=== PATIENT | male | born 1950 | race Caucasian/White ===

== ENCOUNTER 2018-03-07 10:15 | Emergency (ER) | payer BC ==
[~2018-03-07] VITALS: Ht 175.3 cm; Wt 65.0 kg
[2018-03-07 10:21] VITALS: TEMP 38.9; Ht 175.3 cm; Wt 65.0 kg
[2018-03-07] MEDS ORDERED: MoRPHine SULFATE 4 MG/ML 1 ML CARP\\VIAL IV STA (10:38)
[2018-03-07] MEDS ORDERED: MoRPHine SULFATE 4 MG/ML 1 ML CARP\\VIAL IV PRN (10:45)
[2018-03-07 11:13] LABS: BASO % 0.2 %; BASO ABS # 0.03 K/uL (0-0.2); HEMOGLOBIN 15.5 g/dL (14.0-18.0); IG# 0.06 K/uL (0.00-0.02); LYMPH % 10.7 %; LYMPH ABS # 1.59 K/uL (1.2-3.4); MEAN CELL VOLUME 91.8 fL (80-100); MEAN CORPUSCULAR HEMOGLOBIN 30.9 pg (25-34); MEAN CORPUSCULAR HGB CONC 33.7 g/dl (32-36); MEAN PLATELET VOLUME 10.4 fL (7.4-10.4); MONO % 6.5 %; MONO ABS # 0.97 K/uL (0.11-0.59); NEUT % 82.2 %; NEUT ABS # 12.27 K/uL (1.4-6.5); PLATELET COUNT 206 K/uL (130-400); RED CELL DISTRIBUTION WIDTH CV 14.1 % (11.5-14.5); RED CELL DISTRIBUTION WIDTH SD 47.9 fL (36.4-46.3); WHITE BLOOD COUNT 14.92 K/uL (4.8-10.8)
--- NOTE | 2018-03-07 11:18 | EMERGENCY ROOM VISIT NOTE ---
History Report prepared by Maureen: Adonay Gama Under the Supervision of: Dr. Isidro Parra M.D. First contact with patient: 10:28 Chief Complaint: TESTICULAR PAIN Stated Complaint: ENLARGED TESTICLE History of Present Illness The patient is a 67 year old male who presents to the Emergency Room with complaints of testicular enlargement and worsening pain beginning 2 days ago. The patient reports that he noticed enlargement on that day, and states that it felt sensitive throughout the day. He states that last night, his pain shashank "through the roof." He notes that he took 2 hydrocodone at 01:00 and one at 07: 00, which he states greatly improved his symptoms. He rates his current pain at a 7/10 in severity. He notes that yesterday and today his urinary stream has been diminished, and notes a history of prostate "issues." The patient denies nausea, vomiting, or fever. He reports that last week, he experienced a short episode of flank pain as well as testicular pain that resolved quickly. He notes that he often rides his bicycle, but states he was not riding it 2 days ago. He denies any surgeries on the testicles. He reports that he has a cardiac stent. Source of History: patient Onset: 2 days ago Position: other (testicles) Symptom Intensity: 7/10 Quality: other (testicular enlargement and pain) Modifying Factors (Relieving): other (hydrocodone) Associated Symptoms: + urinary symptoms (diminished urinary stream), No fevers, No nausea, No vomiting Note: flank pain Review of Systems See HPI for pertinent positives & negatives. A total of 10 systems reviewed and were otherwise negative. Past Medical & Surgical Surgical Problems: (1) History of heart artery stent Family History Cancer Hypertension Social History Smoking Status: Never Smoker Current/Historical Medications Scheduled Aspirin (Aspirin Ec), 81 MG PO DAILY Atorvastatin (Lipitor), 80 MG PO DAILY Cefdinir (Omnicef), 300 MG PO Q12H Ticagrelor (Brilinta), 90 MG PO BID Miscellaneous Medications None (Patient States No Home Meds) Allergies Coded Allergies: No Known Allergies (Unverified , 03/07/18) Physical Exam Vital Signs Date Time Temp Pulse Resp B/P (MAP) Pulse Ox O2 Delivery O2 Flow Rate FiO2 03/07/18 13:05 70 20 131/60 98 03/07/18 11:39 68 18 141/86 99 Room Air 03/07/18 10:21 38.9 92 20 131/65 99 Room Air Physical Exam GENERAL: Patient is in no acute distress. HEENT: No acute trauma, normocephalic atraumatic, mucous membranes moist, no nasal congestion, no scleral icterus. NECK: No stridor, no adenopathy, no meningismus, trachea is midline. LUNGS: Clear to auscultation bilaterally, no wheeze, no rhonchi, breath sounds equal. HEART: Without murmurs gallops or rubs, regular rate and rhythm. ABDOMEN: Soft, nontender, bowel sounds positive, no hernias, no peritonitis. EXTREMITIES: No cyanosis or edema, full range of motion of all the joints without pain or difficulty, no signs for acute trauma. NEUROLOGIC: Oriented x 3, no acute motor or sensory deficits, no focal weakness. SKIN: No rash, no jaundice, no diaphoresis. GROIN: Very enlarged left hemiscrotum with some warmth and erythema. Left testicle appears enlarged and is quite tender. No obvious hernia. Right hemiscrotum exam is unremarkable. Medical Decision & Procedures ER Provider Diagnostic Interpretation: Radiology results as stated below per my review and radiologist interpretation: (PERLA/BLAD)RETROPERITON COMP HISTORY: 67 years-old Male left flank pain acute left-sided flank pain COMPARISON: CT 02/09/2012 TECHNIQUE: Multiple real-time sonographic images of the kidneys and bladder were obtained assessing grayscale appearance and color flow FINDINGS: Right kidney measures 10.4 cm in length and is unremarkable without renal calculi, hydronephrosis or suspicious mass lesion. Left kidney measures 11.2 cm in length and is also unremarkable without renal calculi, hydronephrosis or suspicious mass lesion. Large diverticulum of the posterior lateral urinary bladder redemonstrated measuring up to approximately 4.7 x 2.9 cm. Bilateral ureteral jets not visualized. The prostate appears enlarged. IMPRESSION: 1. Unremarkable sonographic appearance of the kidneys without renal calculi or hydronephrosis. 2. Prostamegaly with large bladder diverticulum redemonstrated, likely secondary to chronic bladder outlet obstruction. The above report was generated using voice recognition software. It may contain grammatical, syntax or spelling errors. Electronically signed by: Chris Luna M.D. 03/07/2018 12:37 PM Dictated Date/Time: 03/07/2018 12:34 PM (TESTICULAR) SCROTUM-CONT CLINICAL HISTORY: 67 years-old Male with left test swollen, pain. Acute left-sided scrotal pain and swelling COMPARISON STUDY: CT abdomen and pelvis 02/09/2012 TECHNIQUE: Real-time, grayscale, and color Doppler sonography of the testes and scrotum is performed. Images are reviewed in the transverse and longitudinal planes. FINDINGS: RIGHT HEMISCROTUM: The right testis measures 4.7 x 2.2 x 1.8 cm and the parenchyma appears unremarkable. No intratesticular mass is seen. Normal-appearing arterial inflow is present within the right testicle. 0.5 cm right epididymal head cyst. Small varicocele. No hydrocele. LEFT HEMISCROTUM: The left testis measures 4.3 x 3.1 x 2.8 cm and the parenchyma appears mildly hypervascular. No intratesticular mass is seen. Normal-appearing arterial inflow is present within the left testicle. Left epididymis appears enlarged, heterogeneous and hypervascular. Moderate sized complex septated hydrocele. Small varicocele. IMPRESSION: 1. Enlarged heterogeneous and hypervascular left epididymis compatible with acute epididymitis. Additionally, there is mildly increased vascularity about the left testicle suspicious for developing acute orchitis. 2. Moderate sized complex septated left-sided hydrocele, possibly reflects associated pyocele. 3. Small bilateral varicoceles. The above report was generated using voice recognition software. It may contain grammatical, syntax or spelling errors. Electronically signed by: Chris Luna M.D. 03/07/2018 12:41 PM Dictated Date/Time: 03/07/2018 12:37 PM Laboratory Results 03/07/18 11:00 Red Blood Count 5.01, Mean Corpuscular Volume 91.8, Mean Corpuscular Hemoglobin 30.9, Mean Corpuscular Hemoglobin Concent 33.7, Mean Platelet Volume 10.4, Neutrophils (%) (Auto) 82.2, Lymphocytes (%) (Auto) 10.7, Monocytes (%) (Auto) 6.5, Eosinophils (%) (Auto) 0.0, Basophils (%) (Auto) 0.2, Neutrophils # (Auto) 12.27, Lymphocytes # (Auto) 1.59, Monocytes # (Auto) 0.97, Eosinophils # (Auto) 0.00, Basophils # (Auto) 0.03 03/07/18 11:00 Test 03/07/18 11:00 03/07/18 11:25 White Blood Count 14.92 K/uL (4.8-10.8) Red Blood Count 5.01 M/uL (4.7-6.1) Hemoglobin 15.5 g/dL (14.0-18.0) Hematocrit 46.0 % (42-52) Mean Corpuscular Volume 91.8 fL (80-100) Mean Corpuscular Hemoglobin 30.9 pg (25-34) Mean Corpuscular Hemoglobin Concent 33.7 g/dl (32-36) Platelet Count 206 K/uL (130-400) Mean Platelet Volume 10.4 fL (7.4-10.4) Neutrophils (%) (Auto) 82.2 % Lymphocytes (%) (Auto) 10.7 % Monocytes (%) (Auto) 6.5 % Eosinophils (%) (Auto) 0.0 % Basophils (%) (Auto) 0.2 % Neutrophils # (Auto) 12.27 K/uL (1.4-6.5) Lymphocytes # (Auto) 1.59 K/uL (1.2-3.4) Monocytes # (Auto) 0.97 K/uL (0.11-0.59) Eosinophils # (Auto) 0.00 K/uL (0-0.5) Basophils # (Auto) 0.03 K/uL (0-0.2) RDW Standard Deviation 47.9 fL (36.4-46.3) RDW Coefficient of Variation 14.1 % (11.5-14.5) Immature Granulocyte % (Auto) 0.4 % Immature Granulocyte # (Auto) 0.06 K/uL (0.00-0.02) Anion Gap 6.0 mmol/L (3-11) Est Creatinine Clear Calc Drug Dose 59.9 ml/min Estimated GFR () 81.7 Estimated GFR (Non- 70.5 BUN/Creatinine Ratio 13.1 (10-20) Calcium Level 9.8 mg/dl (8.5-10.1) Urine Color YELLOW Urine Appearance CLOUDY (CLEAR) Urine pH 5.5 (4.5-7.5) Urine Specific [place] 1.022 (1.000-1.030) Urine Protein TRACE (NEG) Urine Glucose (UA) TRACE (NEG) Urine Ketones 1+ (NEG) Urine Occult Blood 2+ (NEG) Urine Nitrite POS (NEG) Urine Bilirubin NEG (NEG) Urine Urobilinogen NEG (NEG) Urine Leukocyte Esterase LARGE (NEG) Urine WBC (Auto) >30 /hpf (0-5) Urine RBC (Auto) 0-4 /hpf (0-4) Urine Hyaline Casts (Auto) 1-5 /lpf (0-5) Urine Epithelial Cells (Auto) 5-10 /lpf (0-5) Urine Bacteria (Auto) 4+ (NEG) Laboratory results reviewed by me. Medications Administered Medications (Trade) Dose Ordered Sig/Efrain Route Start Time Stop Time Status Last Admin Dose Admin Morphine Sulfate (MoRPHine SULFATE INJ) 4 mg NOW STAT IV 03/07/18 10:38 03/07/18 10:42 DC 03/07/18 10:59 4 MG Ceftriaxone Sodium (Rocephin Inj) 1 gm NOW STAT IV 03/07/18 12:07 03/07/18 12:09 DC 03/07/18 12:49 1 GM ED Course 1030: The patient was evaluated in room B11A. A complete history and physical exam was performed. 1038: Ordered Morphine Sulfate 4 mg IV 1202: I updated the patient on current results. 1203: I consulted Dr. De Leon - Urology. He recommends treatment with antibiotics for 2 weeks and a follow up visit in the office. 1207: Ordered Rocephin 1 gm IV 1248: Reevaluated the patient. Discussed results and discharge instructions: he verbalized understanding and agreement. The patient is ready for discharge. Medical Decision Differential diagnosis: epididymitis or orchitis, hernia, mass, hydrocele, urinary tract infection, hydronephrosis, testicular torsion There is a mild leukocytosis, this could be consistent with infection. No concerning anemia. No significant electrolyte abnormality or kidney failure. Urinalysis does suggest infection. Urine culture is pending. Testicular ultrasound shows an enlarged left epididymis, the left testicle is slightly inflamed. There was a hydrocele. No evidence for testicular torsion. Renal ultrasound showed no evidence for hydronephrosis. The patient appears to have an epididymitis/orchitis. He has a UTI as well. He did receive IV morphine for pain, IV ceftriaxone as antibiotic coverage. I spoke with urology. The patient is being discharged on Omnicef for 2 weeks. He will follow with the urology office in a few days, if worsening, he will return. Blood Pressure Screening Patient's blood pressure: Elevated blood pressure Blood pressure disposition: Elevated BP felt to be situational Consults Time Called: 1200 Consulting Physician: Dr. De Leon - Urology Returned Call: [address] De Leon - Urology. He recommends treatment with antibiotics for 2 weeks and a follow up visit in the office. Impression Primary Impression: Epididymitis Additional Impressions: Orchitis UTI (urinary tract infection) Scribe Attestation The scribe's documentation has been prepared under my direction and personally reviewed by me in its entirety. I confirm that the note above accurately reflects all work, treatment, procedures, and medical decision making performed by me. Departure Information Dispostion Home / Self-Care Prescriptions Cefdinir (OMNICEF) 300 Mg Cap 300 MG PO Q12H for 14 Days, #28 CAP Prov: Isidro Parra M.D. 03/07/18 Forms HOME CARE DOCUMENTATION FORM, IMPORTANT VISIT INFORMATION, WORK / SCHOOL INSTRUCTIONS Patient Instructions My [facility] Additional Instructions ice and scrotal elevation use ibuprofen for pain and swelling omnicef 2x per day for 2 weeks may use vicodin as needed for severe pain see urology--call for an appt return for fever, vomiting or if not improving as we discussed Problem Qualifiers
[2018-03-07 11:29] LABS: CALCIUM 9.8 mg/dl (8.5-10.1); CREATININE 1.07 mg/dl (0.60-1.40)
[2018-03-07] MEDS ORDERED: ATOR80TA PO (11:38)
[2018-03-07] MEDS ORDERED: ASPI81TA28 PO (11:38)
[2018-03-07] MEDS ORDERED: TICA1TAB PO (11:38)
[2018-03-07] MEDS ORDERED: CEFTRIAXONE SOD INJ 1 GM ADDVIAL IV STA (12:07)
--- NOTE | 2018-03-07 12:38 | DIAGNOSTIC IMAGING REPORT ---
(PERLA/BLAD)RETROPERITON COMP HISTORY: 67 years-old Male left flank pain acute left-sided flank pain COMPARISON: CT 02/09/2012 TECHNIQUE: Multiple real-time sonographic images of the kidneys and bladder were obtained assessing grayscale appearance and color flow FINDINGS: Right kidney measures 10.4 cm in length and is unremarkable without renal calculi, hydronephrosis or suspicious mass lesion. Left kidney measures 11.2 cm in length and is also unremarkable without renal calculi, hydronephrosis or suspicious mass lesion. Large diverticulum of the posterior lateral urinary bladder redemonstrated measuring up to approximately 4.7 x 2.9 cm. Bilateral ureteral jets not visualized. The prostate appears enlarged. IMPRESSION: 1. Unremarkable sonographic appearance of the kidneys without renal calculi or hydronephrosis. 2. Prostamegaly with large bladder diverticulum redemonstrated, likely secondary to chronic bladder outlet obstruction. The above report was generated using voice recognition software. It may contain grammatical, syntax or spelling errors. Electronically signed by: Chris Luna M.D. 03/07/2018 12:37 PM Dictated Date/Time: 03/07/2018 12:34 PM
--- NOTE | 2018-03-07 12:43 | DIAGNOSTIC IMAGING REPORT ---
(TESTICULAR) SCROTUM-CONT CLINICAL HISTORY: 67 years-old Male with left test swollen, pain. Acute left-sided scrotal pain and swelling COMPARISON STUDY: CT abdomen and pelvis 02/09/2012 TECHNIQUE: Real-time, grayscale, and color Doppler sonography of the testes and scrotum is performed. Images are reviewed in the transverse and longitudinal planes. FINDINGS: RIGHT HEMISCROTUM: The right testis measures 4.7 x 2.2 x 1.8 cm and the parenchyma appears unremarkable. No intratesticular mass is seen. Normal-appearing arterial inflow is present within the right testicle. 0.5 cm right epididymal head cyst. Small varicocele. No hydrocele. LEFT HEMISCROTUM: The left testis measures 4.3 x 3.1 x 2.8 cm and the parenchyma appears mildly hypervascular. No intratesticular mass is seen. Normal-appearing arterial inflow is present within the left testicle. Left epididymis appears enlarged, heterogeneous and hypervascular. Moderate sized complex septated hydrocele. Small varicocele. IMPRESSION: 1. Enlarged heterogeneous and hypervascular left epididymis compatible with acute epididymitis. Additionally, there is mildly increased vascularity about the left testicle suspicious for developing acute orchitis. 2. Moderate sized complex septated left-sided hydrocele, possibly reflects associated pyocele. 3. Small bilateral varicoceles. The above report was generated using voice recognition software. It may contain grammatical, syntax or spelling errors. Electronically signed by: Chris Luna M.D. 03/07/2018 12:41 PM Dictated Date/Time: 03/07/2018 12:37 PM
[2018-03-07] MEDS ORDERED: CEFD300C2 PO (12:54)
[2018-03-07 13:05] VITALS: BP 131/60; PULSE 70; O2SAT 98
--- NOTE | 2018-03-09 12:33 | Pharmacy Progress Note ---
ED Pharmacist Culture FollowUp Date of Service: Mar 09, 2018. Patient was sent home with a prescription for Cefdinir 300mg PO BID x 14 days, which should cover the e coli growing from the patient's URINE culture.
== END 2018-03-07 13:06 | disposition home or self-care (01) ==
LOC: C.EDB 10:16
DX: N50.812 Left testicular pain (principal); N45.1 Epididymitis; N45.2 Orchitis; N39.0 Urinary tract infection, site not specified; Z79.82 Long term (current) use of aspirin; Z79.899 Other long term (current) drug therapy; Z82.49 Family history of ischemic heart disease and other diseases of the circulatory system; Z80.9 Family history of malignant neoplasm, unspecified

== ENCOUNTER 2018-03-09 12:35 | Inpatient (IN) | payer BC, OTHER ==
[~2018-03-09] VITALS: Ht 175.3 cm; Wt 61.8 kg
[~2018-03-09 12:35] MED LIST: ASPI81TA28 PO; ATOR80TA PO; CEFD300C2 PO; TICA1TAB PO
[2018-03-09 13:53] LABS: BASO % 0.2 %; BASO ABS # 0.02 K/uL (0-0.2); EOS % 0.5 %; EOS ABS # 0.06 K/uL (0-0.5); HEMATOCRIT 42.4 % (42-52); HEMOGLOBIN 14.2 g/dL (14.0-18.0); IG# 0.07 K/uL (0.00-0.02); LYMPH % 9.9 %; LYMPH ABS # 1.32 K/uL (1.2-3.4); MEAN CELL VOLUME 90.4 fL (80-100); MEAN CORPUSCULAR HEMOGLOBIN 30.3 pg (25-34); MEAN CORPUSCULAR HGB CONC 33.5 g/dl (32-36); MEAN PLATELET VOLUME 10.9 fL (7.4-10.4); MONO % 9.8 %; MONO ABS # 1.31 K/uL (0.11-0.59); NEUT % 79.1 %; NEUT ABS # 10.52 K/uL (1.4-6.5); PLATELET COUNT 250 K/uL (130-400); RED CELL DISTRIBUTION WIDTH CV 14.3 % (11.5-14.5); RED CELL DISTRIBUTION WIDTH SD 47.2 fL (36.4-46.3)
[2018-03-09 14:15] LABS: CALCIUM 9.5 mg/dl (8.5-10.1); CREATININE 0.97 mg/dl (0.60-1.40); POTASSIUM 3.7 mmol/L (3.5-5.1)
--- NOTE | 2018-03-09 14:36 | DIAGNOSTIC IMAGING REPORT ---
ULTRASOUND TESTES AND SCROTUM CLINICAL HISTORY: Left testicular pain and swelling. COMPARISON STUDY: Scrotal ultrasound dated 03/07/2018. TECHNIQUE: Real-time, grayscale, and color Doppler sonography of the testes and scrotum is performed. Images are reviewed in the transverse and longitudinal planes. FINDINGS: The testes are normal in size. The right testis is homogeneous in echotexture. The left testis appears slightly edematous and hyperemic on color imaging. The right testis measures 4.4 x 2.1 x 1.9 cm and the left testis measures 4.8 x 2.7 x 3.3 cm. No intratesticular mass is seen. Normal Doppler waveforms are identified in both testes. The right epididymal head is normal in appearance. The right epididymal head measures 1.0 cm in length, and a 5 mm epididymal head cyst is incidentally noted. The left epididymis is enlarged and heterogeneous, and appears hyperemic on color imaging. There are small bilateral varicoceles, measuring up to 4 mm the left and 3 mm on the right. There is complex fluid identified within the left scrotum, likely representing pyocele. IMPRESSION: 1. Findings of left epididymoorchitis have progressed from the 03/07/2018 examination. 2. There is complex fluid identified around the left testis which likely represents pyocele. Urological assessment is recommended. 3. The right testis is normal in appearance. Electronically signed by: Isidro Felipe M.D. 03/09/2018 2:35 PM Dictated Date/Time: 03/09/2018 2:30 PM
[2018-03-09] MEDS ORDERED: CEFTRIAXONE SOD INJ 1 GM ADDVIAL IV STA (14:50)
--- NOTE | 2018-03-09 15:34 | EMERGENCY ROOM VISIT NOTE ---
History Report prepared by Maureen: Sylvia Mayorga Under the Supervision of: Dr. Tommy Abdullahi M.D. First contact with patient: 13:01 Chief Complaint: URINARY SYMPTOMS Stated Complaint: UTI History of Present Illness The patient is a 67 year old male who presents to the Emergency Room with complaints of worsening urinary symptoms starting a few days ago. The patient states that he was here 2 days ago for a swollen left testicle. He states that they found a UTI, epididymidis, and possibly a slight hydrocele. He states that he called his urologist because the testicle now became firm. He states that he told him to come to the ED. He notes that he was not seen by his urologist since he is from [place]. The patient denies abdominal pain, nausea, vomiting, hematuria, penile discharge, fever, chest pain, and difficulty breathing. He notes that he takes Brilinta. Source of History: patient Onset: a few days ago Position: abdomen Quality: other (urinary symptoms) Timing: worsening Associated Symptoms: No fevers, No chest pain, No nausea, No vomiting, No abdominal pain, No urinary symptoms Note: The patient complains of a swollen left testicle and his testicle being firm. The patient denies penile discharge and difficultly breathing. Review of Systems See HPI for pertinent positives and negatives. A total of ten systems were reviewed and were otherwise negative. Past Medical & Surgical Surgical Problems: (1) History of heart artery stent Family History Cancer Hypertension Social History Smoking Status: Never Smoker Marital Status: Housing Status: lives with significant other Current/Historical Medications Scheduled Aspirin (Aspirin Ec), 81 MG PO DAILY Atorvastatin (Lipitor), 80 MG PO DAILY Cefdinir (Omnicef), 300 MG PO Q12H Ticagrelor (Brilinta), 90 MG PO BID Miscellaneous Medications None (Patient States No Home Meds) Allergies Coded Allergies: No Known Allergies (Unverified , 03/09/18) Physical Exam Vital Signs Date Time Temp Pulse Resp B/P (MAP) Pulse Ox O2 Delivery O2 Flow Rate FiO2 03/09/18 16:30 65 18 115/73 99 Room Air 03/09/18 14:39 76 18 116/60 97 Room Air 03/09/18 12:55 37.0 77 20 112/63 99 Room Air Physical Exam Physical Exam GENERAL: He is oriented to person, place, and time. He appears well-developed and well-nourished. He does not appear distressed. HENT: Exam performed. Head: Normocephalic and atraumatic. Right Ear: External ear normal. No mastoid tenderness. Left Ear: External ear normal. No mastoid tenderness. Mouth/Throat: The oropharynx is clear and moist. No trismus in the jaw. No dental abscesses or uvula swelling. No oropharyngeal exudate or tonsillar abscesses. EYES: Conjunctivae and EOM are normal. Pupils are equal, round, and reactive to light. Right eye exhibits no discharge. Left eye exhibits no discharge. No scleral icterus. NECK: Normal range of motion. Neck supple. No JVD present. No spinous process tenderness present. No carotid bruit present. No rigidity. No tracheal deviation and normal range of motion present. No Brudzinski's sign and no Kernig 's sign noted. CV: Normal rate, regular rhythm, normal heart sounds and intact distal pulses. There is no peripheral edema. Palpable radial pulses bue. PULM/CHEST: Effort normal and breath sounds normal. No respiratory distress. No stridor. He has no wheezes. He has no rales. Chest Wall: He exhibits no tenderness. ABD: The abdomen is soft. Bowel sounds are normal. He has no distension. No mass is present. There is no tenderness. There is no rebound, no guarding, no Souza's sign and no tenderness at McBurney's point. Rovsig negative. : Pain and swelling over the left testicle. No inguinal hernia. No penile discharge. No lesions over the scrotum or genitalia. Skin overlying the left scrotum is erythematous and warm to touch. MUSC/SKEL: Normal range of motion. There is no peripheral edema, tenderness or deformity. LYMPH: No cervical adenopathy. NEURO: He is alert and oriented to person, place, and time. He has normal strength. No cranial nerve deficit or sensory deficit. Coordination and gait normal. GCS eye subscore is 4. GCS verbal subscore is 5. GCS motor subscore is 6. Cerebellar tests wnl. SKIN: Skin is warm and dry. He is not diaphoretic. PSYCH: He has a normal mood and affect. Behavior is normal. Judgment and thought content normal. Medical Decision & Procedures ER Provider Diagnostic Interpretation: Radiology results as stated below per my review and radiologist interpretation: ULTRASOUND TESTES AND SCROTUM CLINICAL HISTORY: Left testicular pain and swelling. COMPARISON STUDY: Scrotal ultrasound dated 03/07/2018. TECHNIQUE: Real-time, grayscale, and color Doppler sonography of the testes and scrotum is performed. Images are reviewed in the transverse and longitudinal planes. FINDINGS: The testes are normal in size. The right testis is homogeneous in echotexture. The left testis appears slightly edematous and hyperemic on color imaging. The right testis measures 4.4 x 2.1 x 1.9 cm and the left testis measures 4.8 x 2.7 x 3.3 cm. No intratesticular mass is seen. Normal Doppler waveforms are identified in both testes. The right epididymal head is normal in appearance. The right epididymal head measures 1.0 cm in length, and a 5 mm epididymal head cyst is incidentally noted. The left epididymis is enlarged and heterogeneous, and appears hyperemic on color imaging. There are small bilateral varicoceles, measuring up to 4 mm the left and 3 mm on the right. There is complex fluid identified within the left scrotum, likely representing pyocele. IMPRESSION: 1. Findings of left epididymoorchitis have progressed from the 03/07/2018 examination. 2. There is complex fluid identified around the left testis which likely represents pyocele. Urological assessment is recommended. 3. The right testis is normal in appearance. Electronically signed by: Isidro Felipe M.D. 03/09/2018 2:35 PM Dictated Date/Time: 03/09/2018 2:30 PM Laboratory Results 03/09/18 13:25 Red Blood Count 4.69, Mean Corpuscular Volume 90.4, Mean Corpuscular Hemoglobin 30.3, Mean Corpuscular Hemoglobin Concent 33.5, Mean Platelet Volume 10.9, Neutrophils (%) (Auto) 79.1, Lymphocytes (%) (Auto) 9.9, Monocytes (%) (Auto) 9.8, Eosinophils (%) (Auto) 0.5, Basophils (%) (Auto) 0.2, Neutrophils # (Auto) 10.52, Lymphocytes # (Auto) 1.32, Monocytes # (Auto) 1.31, Eosinophils # (Auto) 0.06, Basophils # (Auto) 0.02 03/09/18 13:25 Test 03/09/18 13:25 White Blood Count 13.30 K/uL (4.8-10.8) Red Blood Count 4.69 M/uL (4.7-6.1) Hemoglobin 14.2 g/dL (14.0-18.0) Hematocrit 42.4 % (42-52) Mean Corpuscular Volume 90.4 fL (80-100) Mean Corpuscular Hemoglobin 30.3 pg (25-34) Mean Corpuscular Hemoglobin Concent 33.5 g/dl (32-36) Platelet Count 250 K/uL (130-400) Mean Platelet Volume 10.9 fL (7.4-10.4) Neutrophils (%) (Auto) 79.1 % Lymphocytes (%) (Auto) 9.9 % Monocytes (%) (Auto) 9.8 % Eosinophils (%) (Auto) 0.5 % Basophils (%) (Auto) 0.2 % Neutrophils # (Auto) 10.52 K/uL (1.4-6.5) Lymphocytes # (Auto) 1.32 K/uL (1.2-3.4) Monocytes # (Auto) 1.31 K/uL (0.11-0.59) Eosinophils # (Auto) 0.06 K/uL (0-0.5) Basophils # (Auto) 0.02 K/uL (0-0.2) RDW Standard Deviation 47.2 fL (36.4-46.3) RDW Coefficient of Variation 14.3 % (11.5-14.5) Immature Granulocyte % (Auto) 0.5 % Immature Granulocyte # (Auto) 0.07 K/uL (0.00-0.02) Anion Gap 8.0 mmol/L (3-11) Est Creatinine Clear Calc Drug Dose 64.7 ml/min Estimated GFR () 91.9 Estimated GFR (Non- 79.3 BUN/Creatinine Ratio 18.9 (10-20) Lactic Acid Level 1.5 mmol/L (0.4-2.0) Calcium Level 9.5 mg/dl (8.5-10.1) Total Creatine Kinase 46 U/L (39-308) Laboratory results reviewed by me Medications Administered Medications (Trade) Dose Ordered Sig/Efrain Route Start Time Stop Time Status Last Admin Dose Admin Ceftriaxone Sodium (Rocephin Inj) 1 gm NOW STAT IV 03/09/18 14:50 03/09/18 14:51 DC 03/09/18 15:01 1 GM ED Course 1303: The patient was evaluated in room C3. A complete history and physical exam was performed. EMR reviewed. Patient was seen in the emergency department 2 days ago. Patient was febrile at that time and had a white count of 14.92. Ultrasound of the testicles showed epididymitis and orchitis. There is a moderate size complex septated left hydrocele which could have reflected a possible pyocele. 1441: Labs show a leukocytosis of 13.3, improved from leukocytosis 2 days ago. Urinalysis showed 4+ bacteria large leukocyte Estrace positive nitrites and greater than 30 white blood cells. Ultrasound showed a pyocele. We will contact urology and plan on admission. I reevaluated the patient and updated him on his test results at this time. I discussed the treatment plan with him. He verbally expressed understanding and agreement with the treatment plan. Ordered Rocephin Inj 1 gm IV. 1453: I discussed the patient's case with [facility]. She agrees to admit to medicine at this time. 1457: [facility] the [facility] The patient will be evaluated for further treatment and disposition. Medical Decision 1303: The patient was evaluated in room C3. A complete history and physical exam was performed. EMR reviewed. Patient was seen in the emergency department 2 days ago. Patient was febrile at that time and had a white count of 14.92. Ultrasound of the testicles showed epididymitis and orchitis. There is a moderate size complex septated left hydrocele which could have reflected a possible pyocele. 1441: Labs show a leukocytosis of 13.3, improved from leukocytosis 2 days ago. Urinalysis showed 4+ bacteria large leukocyte Estrace positive nitrites and greater than 30 white blood cells. Ultrasound showed a pyocele. We will contact urology and plan on admission. I reevaluated the patient and updated him on his test results at this time. I discussed the treatment plan with him. He verbally expressed understanding and agreement with the treatment plan. Ordered Rocephin Inj 1 gm IV. 1453: I discussed the patient's case with [facility]. She agrees to admit to medicine at this time. 1457: Discussed the patient's case with Dr. Rafael [facility]OURGEO[facility] Hospitalist. The patient will be evaluated for further treatment and disposition. Medication Reconcilliation Current Medication List: was personally reviewed by me Consults Time Called: 1447 Consulting Physician: [facility] Returned Call: 1453 I discussed the patient's case with YARELI Rodarte. She agrees to admit to medicine at this time. Additional Consults: Time Called: 1455 Consulted Physician: Dr. Rafael BOURGEO[facility] Hospitalist Returned Call: 1457 Additional Comments: Discussed the patient's case with Dr. Rafael [facility] Hospitalist. The patient will be evaluated for further treatment and disposition. Impression Primary Impression: Pyocele Scribe Attestation The scribe's documentation has been prepared under my direction and personally reviewed by me in its entirety. I confirm that the note above accurately reflects all work, treatment, procedures, and medical decision making performed by me. The chart was completed utilizing [employer] Speech voice recognition software. Grammatical errors, random word insertions, pronoun errors, and incomplete sentences are an occasional consequence of this system due to software limitations, ambient noise, and hardware issues. Any formal questions or concerns about the content, text, or information contained within the body of this dictation should be directly addressed to the physician for clarification. Departure Information Dispostion Being Evaluated By Hospitalist Referrals No Doctor, Assigned (PCP) Patient Instructions [facility]
--- NOTE | 2018-03-09 18:25 | History and Physical ---
History & Physical Date & Time of Service: Mar 09, 2018 at 18:16 Chief Complaint: UTI Primary Care Physician: No Doctor, Assigned History of Present Illness Source: patient, hospital records, other Past Medical/Surgical History 1) CAD 2) HLD Family History Cancer Hypertension Social History Smoking Status: Never Smoker Marital Status: Allergies Coded Allergies: No Known Allergies (Unverified , 03/09/18) Home Medications Scheduled Aspirin (Aspirin Ec), 81 MG PO DAILY Atorvastatin (Lipitor), 80 MG PO DAILY Cefdinir (Omnicef), 300 MG PO Q12H Ticagrelor (Brilinta), 90 MG PO BID Miscellaneous Medications None (Patient States No Home Meds) Review of Systems Constitutional: No fever, No chills, No sweats Eyes: No worsening of vision ENT: No hearing loss, No unusual epistaxis, No nasal symptoms Respiratory: No cough, No sputum, No wheezing Cardiovascular: No chest pain, No orthopnea, No PND Abdomen: No pain, No nausea, No vomiting Musculoskeletal: No joint pain Genitourinary - Male: + problem reported (testicular pain) Neurologic: No memory loss, No paralysis, No weakness Psychiatric: No depression symptoms Endocrine: No fatigue Hematologic / Lymphatic: No abnormal bleeding/bruising Integumentary: No rash Allergic / Immunologic: No environmental allergies Physical Exam Vital Signs Date Time Temp Pulse Resp B/P (MAP) Pulse Ox O2 Delivery O2 Flow Rate FiO2 03/09/18 16:30 65 18 115/73 99 Room Air 03/09/18 14:39 76 18 116/60 97 Room Air 03/09/18 12:55 37.0 77 20 112/63 99 Room Air General Appearance: WD/WN, no apparent distress Head: normocephalic Eyes: normal inspection ENT: normal ENT inspection, pharynx normal Neck: supple, no JVD Respiratory/Chest: chest non-tender, lungs clear, normal breath sounds Cardiovascular: regular rate, rhythm, no edema, no gallop Abdomen/GI: normal bowel sounds, non tender, soft Back: normal inspection, no CVA tenderness Extremities/Musculoskelatal: normal inspection, no calf tenderness, normal capillary refill 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, no motor/sensory deficits, alert, oriented x 3 Skin: normal color Diagnostics Laboratory Results Results Past 24 Hours Test 03/09/18 13:25 Range/Units White Blood Count 13.30 4.8-10.8 K/uL Red Blood Count 4.69 4.7-6.1 M/uL Hemoglobin 14.2 14.0-18.0 g/dL Hematocrit 42.4 42-52 % Mean Corpuscular Volume 90.4 80-100 fL Mean Corpuscular Hemoglobin 30.3 25-34 pg Mean Corpuscular Hemoglobin Concent 33.5 32-36 g/dl Platelet Count 250 130-400 K/uL Mean Platelet Volume 10.9 7.4-10.4 fL Neutrophils (%) (Auto) 79.1 % Lymphocytes (%) (Auto) 9.9 % Monocytes (%) (Auto) 9.8 % Eosinophils (%) (Auto) 0.5 % Basophils (%) (Auto) 0.2 % Neutrophils # (Auto) 10.52 1.4-6.5 K/uL Lymphocytes # (Auto) 1.32 1.2-3.4 K/uL Monocytes # (Auto) 1.31 0.11-0.59 K/uL Eosinophils # (Auto) 0.06 0-0.5 K/uL Basophils # (Auto) 0.02 0-0.2 K/uL RDW Standard Deviation 47.2 36.4-46.3 fL RDW Coefficient of Variation 14.3 11.5-14.5 % Immature Granulocyte % (Auto) 0.5 % Immature Granulocyte # (Auto) 0.07 0.00-0.02 K/uL Sodium Level 139 136-145 mmol/L Potassium Level 3.7 3.5-5.1 mmol/L Chloride Level 106 98-107 mmol/L Carbon Dioxide Level 25 21-32 mmol/L Anion Gap 8.0 3-11 mmol/L Blood Urea Nitrogen 18 7-18 mg/dl Creatinine 0.97 0.60-1.40 mg/dl Est Creatinine Clear Calc Drug Dose 64.7 ml/min Estimated GFR () 91.9 Estimated GFR (Non- 79.3 BUN/Creatinine Ratio 18.9 10-20 Random Glucose 88 70-99 mg/dl Lactic Acid Level 1.5 0.4-2.0 mmol/L Calcium Level 9.5 8.5-10.1 mg/dl Total Creatine Kinase 46 39-308 U/L Diagnostic Radiology US testicular: 1. Findings of left epididymoorchitis have progressed from the 03/07/2018 examination 2. There is complex fluid identified around the left testis which likely represents pyocele. Urological assessment is recommended 3. The right testis is normal in appearance Impression Resuscitation Status
[2018-03-09] MEDS ORDERED: MoRPHine SULFATE 2 MG/ML CARP IV PRN (18:30)
[2018-03-09] MEDS ORDERED: ONDANSETRON INJ 2 MG/ML 2 ML VIAL IV PRN (18:30)
[2018-03-09] MEDS ORDERED: ZOLPIDEM TARTRATE 5 MG TAB PO PRN (18:30)
[2018-03-09] MEDS ORDERED: ALUMINUM/MAGNESIUM/SIMETH (MAALOX MAX) 30 ML UDC PO PRN (18:30)
[2018-03-09] MEDS ORDERED: MAGNESIUM HYDROXIDE SUSP 30 ML UDC PO PRN (18:30)
[2018-03-09] MEDS ORDERED: POLYETHYLENE (MIRALAX) 17 GM PACK PO PRN (18:30)
[2018-03-09 19:31] VITALS: BP 117/61; PULSE 72; TEMP 37.3; O2SAT 99; Ht 175.3 cm; Wt 61.8 kg
[2018-03-09] MEDS: D5NSS + 20MEQ KCL 1,000 ML IV SCH (20:42)
[2018-03-09] MEDS: ACETAMINOPHEN 325 MG TAB PO PRN (20:43)
--- NOTE | 2018-03-09 20:43 | History and Physical ---
History & Physical Date & Time of Service: Mar 09, 2018 at 20:30 Chief Complaint: Epididymitis, Orchitis Primary Care Physician: No Doctor, Assigned History of Present Illness Source: patient, hospital records, other 67 y/o M Hx CAD. The pt developed R testicular swelling and pain 5 days prior. He was placed on Omnicef by his MD after a testicular US revealed epididymoorchitis. The swelling increased and the area became increasingly firm over the next few days. He was directed to the ER after calling his urologist. A repeat US was obtained demonstrating progression from 03/07/2018 and complex fluid collection around the left testis which likely represents a pyocele. He is admitted for IV antibiotics and a urology assessment. He has not had dysuria or fevers. Past Medical/Surgical History 1) CAD - LAD stent 07/2017 Family History Cancer Hypertension Social History Quit smoking 40 years ago - retired and lives in [place] most of the year. Drinks socially. Avid biker. Smoking Status: Former Smoker Marital Status: Allergies Coded Allergies: No Known Allergies (Unverified , 03/09/18) Home Medications Scheduled Aspirin (Aspirin Ec), 81 MG PO DAILY Atorvastatin (Lipitor), 80 MG PO DAILY Cefdinir (Omnicef), 300 MG PO Q12H Ticagrelor (Brilinta), 90 MG PO BID Miscellaneous Medications None (Patient States No Home Meds) Review of Systems Constitutional: No fever, No chills, No sweats Eyes: No worsening of vision ENT: No hearing loss, No unusual epistaxis, No nasal symptoms Respiratory: No cough, No sputum, No wheezing Cardiovascular: No chest pain, No orthopnea, No PND Abdomen: No pain, No nausea, No vomiting Musculoskeletal: No joint pain Genitourinary - Male: + problem reported (L testicular pain and swelling), No hematuria, No dysuria Neurologic: No memory loss, No paralysis Psychiatric: No depression symptoms Endocrine: No fatigue Hematologic / Lymphatic: No abnormal bleeding/bruising Integumentary: No rash Allergic / Immunologic: No environmental allergies Physical Exam Vital Signs Date Time Temp Pulse Resp B/P (MAP) Pulse Ox O2 Delivery O2 Flow Rate FiO2 03/09/18 19:31 37.3 72 18 117/61 99 Room Air 03/09/18 18:56 69 20 117/66 96 03/09/18 18:24 69 20 117/66 96 Room Air 03/09/18 16:30 65 18 115/73 99 Room Air 03/09/18 14:39 76 18 116/60 97 Room Air 03/09/18 12:55 37.0 77 20 112/63 99 Room Air General Appearance: WD/WN, no apparent distress Head: normocephalic Eyes: normal inspection ENT: normal ENT inspection, pharynx normal Neck: supple, no JVD Respiratory/Chest: chest non-tender, lungs clear, normal breath sounds Cardiovascular: regular rate, rhythm, no edema, no gallop Abdomen/GI: normal bowel sounds, non tender, soft Genitourinary - Male: + pertinent finding (Scrotal erythema and swelling are apparent ) Back: normal inspection, no CVA tenderness Extremities/Musculoskelatal: normal inspection, no calf tenderness, normal capillary refill 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, no motor/sensory deficits, alert, oriented x 3 Skin: normal color Diagnostics Laboratory Results Results Past 24 Hours Test 03/09/18 13:25 Range/Units White Blood Count 13.30 4.8-10.8 K/uL Red Blood Count 4.69 4.7-6.1 M/uL Hemoglobin 14.2 14.0-18.0 g/dL Hematocrit 42.4 42-52 % Mean Corpuscular Volume 90.4 80-100 fL Mean Corpuscular Hemoglobin 30.3 25-34 pg Mean Corpuscular Hemoglobin Concent 33.5 32-36 g/dl Platelet Count 250 130-400 K/uL Mean Platelet Volume 10.9 7.4-10.4 fL Neutrophils (%) (Auto) 79.1 % Lymphocytes (%) (Auto) 9.9 % Monocytes (%) (Auto) 9.8 % Eosinophils (%) (Auto) 0.5 % Basophils (%) (Auto) 0.2 % Neutrophils # (Auto) 10.52 1.4-6.5 K/uL Lymphocytes # (Auto) 1.32 1.2-3.4 K/uL Monocytes # (Auto) 1.31 0.11-0.59 K/uL Eosinophils # (Auto) 0.06 0-0.5 K/uL Basophils # (Auto) 0.02 0-0.2 K/uL RDW Standard Deviation 47.2 36.4-46.3 fL RDW Coefficient of Variation 14.3 11.5-14.5 % Immature Granulocyte % (Auto) 0.5 % Immature Granulocyte # (Auto) 0.07 0.00-0.02 K/uL Sodium Level 139 136-145 mmol/L Potassium Level 3.7 3.5-5.1 mmol/L Chloride Level 106 98-107 mmol/L Carbon Dioxide Level 25 21-32 mmol/L Anion Gap 8.0 3-11 mmol/L Blood Urea Nitrogen 18 7-18 mg/dl Creatinine 0.97 0.60-1.40 mg/dl Est Creatinine Clear Calc Drug Dose 64.7 ml/min Estimated GFR () 91.9 Estimated GFR (Non- 79.3 BUN/Creatinine Ratio 18.9 10-20 Random Glucose 88 70-99 mg/dl Lactic Acid Level 1.5 0.4-2.0 mmol/L Calcium Level 9.5 8.5-10.1 mg/dl Total Creatine Kinase 46 39-308 U/L Diagnostic Radiology US: 1. Findings of left epididymoorchitis have progressed from the 03/07/2018 examination. 2. There is complex fluid identified around the left testis which likely represents pyocele. Urological assessment is recommended. 3. The right testis is normal in appearance. Impression Assessment and Plan 67 y/o M Hx CAD. The pt developed R testicular swelling and pain 5 days prior. He was placed on Omnicef by his MD after a testicular US revealed epididymoorchitis. The swelling increased and the area became increasingly firm over the next few days. He was directed to the ER after calling his urologist. A repeat US was obtained demonstrating progression from 03/07/2018 and complex fluid collection around the left testis which likely represents a pyocele. He is admitted for IV antibiotics and a urology assessment. He has not had dysuria or fevers. 1) Epididymoorchitis with pyocele - pending urology evaluation. Placed on antibiotics, IVF, analgesics as needed. 2) CAD - cont ASA, Brilinta, Lipitor Full code - SCDs Total time for this admit including review of labs, meds, imaging, records - discussion with pt and ER attending - 32 min Advanced Directives Existing Living Will: Yes Existing Power of Manager Cancer: No Resuscitation Status VTE Prophylaxis Will order VTE Prophylaxis: Yes
[2018-03-09] MEDS: TICAGRELOR 90 MG TAB PO SCH (21:36)
[2018-03-09 22:42] VITALS: BP 112/66; PULSE 62; TEMP 37; O2SAT 98
[2018-03-09 23:50] VITALS: O2SAT 98
[2018-03-10] MEDS: D5NSS + 20MEQ KCL 1,000 ML IV SCH (06:20)
[2018-03-10 07:22] LABS: HEMATOCRIT 40.1 % (42-52); HEMOGLOBIN 13.5 g/dL (14.0-18.0); MEAN CELL VOLUME 89.5 fL (80-100); MEAN CORPUSCULAR HEMOGLOBIN 30.1 pg (25-34); MEAN CORPUSCULAR HGB CONC 33.7 g/dl (32-36); MEAN PLATELET VOLUME 10.4 fL (7.4-10.4); PLATELET COUNT 277 K/uL (130-400); RED CELL DISTRIBUTION WIDTH CV 14.4 % (11.5-14.5); RED CELL DISTRIBUTION WIDTH SD 47.5 fL (36.4-46.3)
[2018-03-10 07:44] VITALS: BP 124/82; PULSE 76; TEMP 37.1; O2SAT 98
[2018-03-10 07:50] LABS: CALCIUM 9.1 mg/dl (8.5-10.1); CREATININE 0.87 mg/dl (0.60-1.40); POTASSIUM 3.9 mmol/L (3.5-5.1)
[2018-03-10] MEDS ORDERED: PNEUMOCOCCAL POLYSACCHARIDES 25 MCG/0.5 ML VIAL/SYR IM. ONE (08:00)
[2018-03-10] MEDS ORDERED: PNEUMOCOCCAL ADMINISTRATION CHARGE ONE (08:00)
[2018-03-10] MEDS: ATORVASTATIN 40 MG TAB PO SCH (08:25)
[2018-03-10] MEDS: ACETAMINOPHEN 325 MG TAB PO PRN (08:25)
[2018-03-10 08:39] VITALS: O2SAT 98
--- NOTE | 2018-03-10 12:18 | Urology Consultation ---
History General Date of Service: Mar 10, 2018. Chief Complaint: testicular swelling Primary Care Physician: No Doctor, Assigned Pt seen a urologist before?: Yes (in [place], pt in [facility]) If yes, why?: BPH, urinary retention History of Present Illness 67 YO male, left pyocele Patient lives in [place] and is in [facility]. He sees urologist in [place] for chronic retention/BPH. He does CIC QHS. States he noticed testicular swelling 5 days ago, was seen at urgent care and ED earlier this week, was placed on Cefdinir for UTI and epididymitis. Came to the ER last night due to testicular firmness, US revealed no torsion but likely left pyocele. Patient states he feels well today. Denies nausea/vomiting. Urinating without difficulty, is continuing CIC per his normal routine. Remains febrile, remains on IV antibiotics. Imaging Imaging: Ultrasound Images were done at: [facility] Laboratory Labs were reviewed and are within normal limits unless listed below. Labs are available in the chart and at [facility] Problem List Medical Problems: (1) Epididymitis Status: Acute (2) Orchitis Status: Acute (3) Pyocele Status: Acute (4) UTI (urinary tract infection) Status: Acute Past History coronary artery disease Family History Cancer Hypertension Social History Hx Tobacco Use In Past Year?: No (QUIT 40 YEARS AGO) Alcohol: occasional Drug use: none Marital status: Housing status: lives with family History of MDRO No Allergies Coded Allergies: No Known Allergies (Unverified , 03/09/18) Medications Home Medications: Home Meds and Scripts Medications Dose Route/Sig Max Daily Dose Days Date Category Omnicef (Cefdinir) 300 Mg Cap 300 Mg PO Q12H 14 03/07/18 Rx Aspirin Ec (Aspirin) 81 Mg Tab 81 Mg PO DAILY 03/07/18 Reported Brilinta (Ticagrelor) 90 Mg Tab 90 Mg PO BID 03/07/18 Reported Lipitor (Atorvastatin) 80 Mg Tab 80 Mg PO DAILY 03/07/18 Reported Patient States No Home Meds (Miscellaneous) . 03/14/12 Reported Inpatient Medications: Current Inpatient Medications Medications (Trade) Dose Ordered Sig/Efrain Route Start Time Stop Time Status Last Admin Dose Admin Aspirin (Ecotrin Tab) 81 mg DAILY PO 03/10/18 09:00 04/09/18 08:59 Atorvastatin Calcium (Lipitor Tab) 80 mg DAILY PO 03/10/18 09:00 04/09/18 08:59 03/10/18 08:25 80 MG Ticagrelor (Brilinta Tab) 90 mg BID PO 03/09/18 21:00 04/08/18 20:59 03/09/18 21:36 90 MG Ceftriaxone Sodium 1 gm/ Dextrose 50 ml @ 100 mls/hr Q24H IV 03/10/18 14:00 03/20/18 13:59 Acetaminophen (Tylenol Tab) 650 mg Q4H PRN PO 03/09/18 18:30 04/08/18 18:29 03/10/18 08:25 650 MG Al Hydrox/Mg Hydrox/Simethicone (Maalox Max Susp) 15 ml Q4H PRN PO 03/09/18 18:30 04/08/18 18:29 Magnesium Hydroxide (Milk Of Magnesia Susp) 30 ml Q6H PRN PO 03/09/18 18:30 04/08/18 18:29 Polyethylene (Miralax Powder Packet) 17 gm DAILY PRN PO 03/09/18 18:30 04/08/18 18:29 Zolpidem Tartrate (Ambien Tab) 5 mg HSZ PRN PO 03/09/18 18:30 04/08/18 18:29 Ondansetron HCl (Zofran Inj) 4 mg Q6H PRN IV 03/09/18 18:30 04/08/18 18:29 Potassium Chloride/Dextrose/ Sod Cl 1,000 ml @ 100 mls/hr Q10H IV 03/09/18 19:30 03/10/18 15:29 03/10/18 06:20 100 MLS/HR Morphine Sulfate (MoRPHine SULFATE INJ) 2 mg Q3H PRN IV 03/09/18 18:30 03/23/18 18:29 Review of Systems Review of Systems Constitutional: + fever, No chills Eyes: No blurred vision Neurological: No numbness/tingling Gastrointestinal: No abdominal pain, No nausea, No vomiting Cardiovascular: No chest pain Respiratory: No shortness of breath Skin: No rash Male : + see HPI, + urinary retention, No frequent urination, No painful urination, No weak stream, No blood in urine, No kidney stones Physical Exam Vital Signs: Vital Signs Past 12 Hours Date Time Temp Pulse Resp B/P (MAP) Pulse Ox O2 Delivery O2 Flow Rate FiO2 03/10/18 08:39 98 Room Air 03/10/18 08:25 Room Air 03/10/18 07:44 37.1 76 16 124/82 (96) 98 Room Air Physical Exam: General Appearance: no apparent distress Eyes: bilateral eyes normal inspection ENT: hearing grossly normal Neck: supple, no JVD Respiratory/Chest: no respiratory distress, no accessory muscle use Cardiovascular: no JVD Gastrointestinal: Abdomen: normal abdomen Bladder: normal bladder Renal: normal renal Genitourinary - Male: Penis: normal penis Urethral Meatus: normal urethral meatus Testes: tenderness, hydrocele, pertinent finding (see HPI) Epididymides: tender Extremities: normal inspection Neurologic/Psychiatric: alert, normal mood/affect, oriented x 3 Skin: normal color Assessment & Plan Assessment & Plan 67 YO male, left pyocele. Patient reports feeling better, denies pain. Swelling persists. Patient reports that he and will be travelling and arriving home to [place] on 03/22. He states that he has been in contact with his Urologist there and has arranged a follow up appointment upon his return. Recommend 2+ week course of antibiotic coverage. Recommend supportive care: scrotal elevation at night, fitted underwear for support, ice 20 min on/off, and anti inflammatory pain medication to manage swelling. Reviewed worrisome signs including terrible pain, vomiting, spiking high fever, or inability to urinate/cath, indicating that he needs to seek urgent care along his continued travels. Patient voices understanding. Thank you for allowing us to participate in the care of this patient. Recall PRN concerns. Patient seen and examined He is remained afebrile Says he actually feels somewhat better Voiding without problem Urine culture positive for E. coli Scrotal exam reveals firm scrotum there are no fluctuant areas to suggest an abscess Ultrasound reviewed it appears he has a pyocele I would continue him on his IV antibiotics for now We will I discussed with him that a lot of times pyocele's are drained although I do not feel any fluctuant areas that I would consider abscessed Also that sometimes you can treat this with an antibiotic He would like to just try the antibiotics for now as he does not live in [place] We will observe him overnight He continues to improve he can probably be discharged on oral antibiotics When he gets back to [place] he should see a urologist to make sure this is not getting worse Brad Reddy
[2018-03-10] MEDS: ASPIRIN 81 MG ECTAB PO SCH (14:11)
[2018-03-10] MEDS: TICAGRELOR 90 MG TAB PO SCH ×2 (14:12→20:43)
[2018-03-10] MEDS: CEFTRIAXONE SOD INJ 1 GM in DEXTROSE 5% ADD-VANTAGE 50ML 50 ML IV SCH (14:12)
[2018-03-10] MEDS ORDERED: CEFD300C2 PO (14:57)
[2018-03-10] MEDS ORDERED: PANT40TA PO (15:07)
--- NOTE | 2018-03-10 15:09 | Discharge Instructions ---
Discharge Instructions Date of Service Mar 10, 2018. Admission Reason for Admission: Epididymitis, Orchitis Discharge Discharge Diagnosis / Problem: Pyocele; Epididymoorchitis Discharge Goals Goal(s): Decrease discomfort, Improve function, Increase independence Activity Recommendations Activity Limitations: resume your previous activity . Instructions / Follow-Up Instructions / Follow-Up Pyocele and E. coli Urinary Tract Infection: - The main thing for this will be to continue antibiotics. The prescription from the ER for Omnicef 300 mg twice a day will be good coverage but will need to take for at least 14 days. Would recommend to continue this until you see your urologist or when they advise to stop -- Will give you a prescription for this medication as well so if you run out before you see your urologist you will have this. - Continue Ibuprofen as needed for pain and may use your stronger pain medication if you need too. -- The recommendation is to keep Ibuprofen use to under 1200 mg a day in total. - Continue to use the scrotal support brief. When you can recommend to roll a small towel/hand towel and place under the scrotum to help allow gravity to push some fluid out - May use ice for 20 minutes on and then 20 minutes off to help with discomfort and swelling - Please return if you develop increasing pain, vomiting, fevers, or no urine when you urinate/cath - Since you are on aspirin and brilinta, will give a prescription for protonix. This is an acid reducing/heart burn medicine to take while you are taking more ibuprofen. If you only need ibuprofen on rare occasions you may not need the Protonix. This medication will just help prevent stomach issues when taking medications suchs as NSAIDs/anti-inflammatories. - There is no limitations but just take breaks as needed and when you do, try to elevate the scrotum. Current Hospital Diet Patient's current hospital diet: AHA Diet (Heart Healthy) Discharge Diet Recommended Diet: AHA Diet (Heart Healthy) Pending Studies Studies pending at discharge: no Medical Emergencies . Who to Call and When: Medical Emergencies: If at any time you feel your situation is an emergency, please call 911 immediately. . Non-Emergent Contact Non-Emergency issues call your: Primary Care Provider Call Non-Emergent contact if: you have a fever, your pain is concerning you, you have any medication questions . . "Provider Documentation" section prepared by Felipa Thomas. .
[2018-03-10 15:15] VITALS: BP 113/70; PULSE 73; TEMP 37; O2SAT 97
--- NOTE | 2018-03-10 22:26 | Hospitalist Progress Note ---
Hospitalist Progress Note Date of Service Mar 10, 2018. Subjective Pt evaluation today including: conversation w/ patient, conversation w/ family , physical exam, chart review, lab review, review of studies, conversation w/ excellence consultant (Dr. Reddy and TIARA Barnett), review of inpatient medication list Patient seen and evaluated. No acute events overnight. Reports ongoing edema and firmness of the scrotum but states pain has progressively improved since this began on Tuesday. Reports that he hasn't really been elevated the scrotum but has been utilizing Abx. He remains afebrile and without leukocytosis. Per Urology there is currently no area needing drained at this time but would like to monitor. Patient currently is utilizing ice, scrotal support strap, and elevation with a hand towel. Constitutional: No fever, No chills Respiratory: No cough, No shortness of breath Cardiovascular: No chest pain Abdomen: No pain, No nausea Male : No dysuria Heme: No abnormal bleeding/bruising Medications Current Inpatient Medications Medications (Trade) Dose Ordered Sig/Efrain Route Start Time Stop Time Status Last Admin Dose Admin Aspirin (Ecotrin Tab) 81 mg DAILY PO 03/10/18 09:00 04/09/18 08:59 03/10/18 14:11 81 MG Atorvastatin Calcium (Lipitor Tab) 80 mg DAILY PO 03/10/18 09:00 04/09/18 08:59 03/10/18 08:25 80 MG Ticagrelor (Brilinta Tab) 90 mg BID PO 03/09/18 21:00 04/08/18 20:59 03/10/18 20:43 90 MG Ceftriaxone Sodium 1 gm/ Dextrose 50 ml @ 100 mls/hr Q24H IV 03/10/18 14:00 03/20/18 13:59 03/10/18 14:12 100 MLS/HR Acetaminophen (Tylenol Tab) 650 mg Q4H PRN PO 03/09/18 18:30 04/08/18 18:29 03/10/18 08:25 650 MG Al Hydrox/Mg Hydrox/Simethicone (Maalox Max Susp) 15 ml Q4H PRN PO 03/09/18 18:30 04/08/18 18:29 Magnesium Hydroxide (Milk Of Magnesia Susp) 30 ml Q6H PRN PO 03/09/18 18:30 04/08/18 18:29 Polyethylene (Miralax Powder Packet) 17 gm DAILY PRN PO 03/09/18 18:30 04/08/18 18:29 Zolpidem Tartrate (Ambien Tab) 5 mg HSZ PRN PO 03/09/18 18:30 04/08/18 18:29 Ondansetron HCl (Zofran Inj) 4 mg Q6H PRN IV 03/09/18 18:30 04/08/18 18:29 Morphine Sulfate (MoRPHine SULFATE INJ) 2 mg Q3H PRN IV 03/09/18 18:30 03/23/18 18:29 Objective Vital Signs Date Time Temp Pulse Resp B/P (MAP) Pulse Ox O2 Delivery O2 Flow Rate FiO2 03/10/18 15:15 37.0 73 18 113/70 (84) 97 03/10/18 08:39 98 Room Air 03/10/18 08:25 Room Air 03/10/18 07:44 37.1 76 16 124/82 (96) 98 Room Air 03/09/18 23:50 98 Room Air 03/09/18 22:42 37.0 62 16 112/66 (81) 98 Room Air Physical Exam General Appearance: WD/WN, no apparent distress Eyes: sclerae normal ENT: hearing grossly normal Neck: supple, no JVD, trachea midline Respiratory/Chest: lungs clear, normal breath sounds, no respiratory distress, no accessory muscle use Cardiovascular: regular rate, rhythm, no gallop, no murmur Abdomen: normal bowel sounds, non tender, soft Extremities: no pedal edema, no calf tenderness Neurologic/Psychiatric: alert, oriented x 3 Skin: normal color, warm/dry Notes: : Mildly erythematous scrotum not warm to touch; firmness to inferior/ posterior aspect of scrotum with some mild tenderness to palpation; no fluctuance appreciate Laboratory Results Last 24 Hours Test 03/10/18 06:48 White Blood Count 9.10 K/uL Red Blood Count 4.48 M/uL Hemoglobin 13.5 g/dL Hematocrit 40.1 % Mean Corpuscular Volume 89.5 fL Mean Corpuscular Hemoglobin 30.1 pg Mean Corpuscular Hemoglobin Concent 33.7 g/dl RDW Standard Deviation 47.5 fL RDW Coefficient of Variation 14.4 % Platelet Count 277 K/uL Mean Platelet Volume 10.4 fL Sodium Level 140 mmol/L Potassium Level 3.9 mmol/L Chloride Level 107 mmol/L Carbon Dioxide Level 25 mmol/L Anion Gap 8.0 mmol/L Blood Urea Nitrogen 12 mg/dl Creatinine 0.87 mg/dl Est Creatinine Clear Calc Drug Dose 70.0 ml/min Estimated GFR () 102.1 Estimated GFR (Non- 88.1 BUN/Creatinine Ratio 13.5 Random Glucose 103 mg/dl Calcium Level 9.1 mg/dl Magnesium Level 2.2 mg/dl Assessment and Plan 67 y/o M Hx CAD. The pt developed R testicular swelling and pain 5 days prior. He was placed on Omnicef by his MD after a testicular US revealed epididymoorchitis. The swelling increased and the area became increasingly firm over the next few days. He was directed to the ER after calling his urologist. A repeat US was obtained demonstrating progression from 03/07/2018 and complex fluid collection around the left testis which likely represents a pyocele. He is admitted for IV antibiotics and a urology assessment. He has not had dysuria or fevers. Epididymoorchitis with Pyocele: - Rocephin 1 g IV daily - Supportive measures with ice, scrotal elevation, NSAIDs - Urology following - discussed with Dr. Reddy and TIARA Rodarte - continue antibiotics and reassessment tomorrow CAD: - ASA 81 mg daily and Brilinta 90 mg BID; Atorvastatin 80 mg daily Code Status: FULL RESUSCITATION Disposition: Resident of [place] - plans to return home with Urology F/U Continued [facility] stay due to: multiple IV medications needed Discharge planning: home
[2018-03-10 22:53] VITALS: BP 119/75; PULSE 61; TEMP 37.1; O2SAT 99
[2018-03-11 07:57] VITALS: BP 126/78; PULSE 63; PULSE 77; TEMP 36.8; O2SAT 98
[2018-03-11] MEDS: ASPIRIN 81 MG ECTAB PO SCH (09:10)
[2018-03-11] MEDS: TICAGRELOR 90 MG TAB PO SCH (09:10)
[2018-03-11] MEDS: ATORVASTATIN 40 MG TAB PO SCH (09:11)
--- NOTE | 2018-03-11 11:17 | Progress Note ---
Progress Note Date of Service Mar 11, 2018. Progress Note Hospital day #2 from the left epididymal orchitis Patient has remained afebrile vital signs are stable He says he is feeling better Voiding without difficulty Exam Scrotal erythema is significantly improved Testicular pain much less There is no areas of fluctuance to suggest abscess The degree of swelling also seems to be less than yesterday Impression left epididymal orchitis I did again discuss the possibility of abscess formation and we discussed going to the operating room for drainage of the presumed pyocele. Since he is getting better he would like to just continue with the antibiotics. He will be going back to [place] and has contacted his urologist there I did tell him that if he develops fever chills or if the scrotum were to again become more swollen or tender or if the erythema came back that he needs to let us know and then we would drain the scrotum. Since he is improving and is not going to be going to the operating room he can be discharged home on 2 weeks of an antibiotic that the organism was sensitive to Would also give him some pain medication.
[2018-03-11] MEDS: CEFTRIAXONE SOD INJ 1 GM in DEXTROSE 5% ADD-VANTAGE 50ML 50 ML IV SCH (11:31)
[2018-03-11 11:38] VITALS: BP 126/70; PULSE 63; TEMP 36.8; O2SAT 97
[2018-03-11 11:39] VITALS: BP 126/78; PULSE 61; TEMP 36.8; O2SAT 98
--- NOTE | 2018-03-11 14:54 | Discharge Summary ---
Discharge Summary Date of Service Mar 11, 2018. Discharge Summary Admission Date: Mar 09, 2018 at 18:21 Discharge Date: Mar 10, 2018 Discharge Disposition: Home Principal Diagnosis: Epididymoorchitis with Pyocele Problems/Secondary Diagnoses: 1) CAD - LAD stent 07/2017 2) Urinary Retention - Self Cath Procedures: ULTRASOUND TESTES AND SCROTUM FINDINGS: The testes are normal in size. The right testis is homogeneous in echotexture. The left testis appears slightly edematous and hyperemic on color imaging. The right testis measures 4.4 x 2.1 x 1.9 cm and the left testis measures 4.8 x 2.7 x 3.3 cm. No intratesticular mass is seen. Normal Doppler waveforms are identified in both testes. The right epididymal head is normal in appearance. The right epididymal head measures 1.0 cm in length, and a 5 mm epididymal head cyst is incidentally noted. The left epididymis is enlarged and heterogeneous, and appears hyperemic on color imaging. There are small bilateral varicoceles, measuring up to 4 mm the left and 3 mm on the right. There is complex fluid identified within the left scrotum, likely representing pyocele. IMPRESSION: 1. Findings of left epididymoorchitis have progressed from the 03/07/2018 examination. 2. There is complex fluid identified around the left testis which likely represents pyocele. Urological assessment is recommended. 3. The right testis is normal in appearance. Consultations: 1. Urology - Dr. Reddy and TIARA Rodarte Medication Reconciliation New Medications: Pantoprazole Sodium (Protonix) 40 Mg Tab 40 MG PO DAILY for 30 Days, #30 TAB Continued Medications: Aspirin (Aspirin Ec) 81 Mg Tab 81 MG PO DAILY Atorvastatin (Lipitor) 80 Mg Tab 80 MG PO DAILY Cefdinir (Omnicef) 300 Mg Cap 300 MG PO Q12H for 14 Days, #28 CAP (This prescription has been renewed) Ticagrelor (Brilinta) 90 Mg Tab 90 MG PO BID Discontinued Medications: None (Patient States No Home Meds) . Discharge Exam REVIEW OF SYSTEMS: Constitutional: No fever, No chills Respiratory: No cough, No shortness of breath Cardiovascular: No chest pain Abdomen: No pain, No nausea Male : No dysuria Heme: No abnormal bleeding/bruising PHYSICAL EXAM: General Appearance: WD/WN, no apparent distress Eyes: sclerae normal ENT: hearing grossly normal Neck: supple, no JVD, trachea midline Respiratory/Chest: lungs clear, normal breath sounds, no respiratory distress, no accessory muscle use Cardiovascular: regular rate, rhythm, no gallop, no murmur Abdomen: normal bowel sounds, non tender, soft Extremities: no pedal edema, no calf tenderness Neurologic/Psychiatric: alert, oriented x 3 Skin: normal color, warm/dry Notes: : Mildly erythematous scrotum not warm to touch; firmness to inferior/ posterior aspect of scrotum with some mild tenderness to palpation; no fluctuance appreciated Hospital Course ADMISSION: 67 y/o M Hx CAD. The pt developed R testicular swelling and pain 5 days prior. He was placed on Omnicef by his MD after a testicular US revealed epididymoorchitis. The swelling increased and the area became increasingly firm over the next few days. He was directed to the ER after calling his urologist. A repeat US was obtained demonstrating progression from 03/07/2018 and complex fluid collection around the left testis which likely represents a pyocele. He is admitted for IV antibiotics and a urology assessment. He has not had dysuria or fevers. HOSPITAL COURSE: Epididymoorchitis with Pyocele: - Rocephin 1 g IV daily initially with conversion to Omnicef 300 mg BID x 14 days total unless instructed by Urologist in [place] to continue longer. Did give extended medications if this would be necessary since patient is traveling between areas in [place] prior to returning to [place] - Instructions given for reasons to return to a hospital - likely does not need additional coverage as he is monogamously and no H/O STDs and low suspicion of such. No finding at this time to suggest gangrene. He does straight cath but never had frequent UTIs - Does have a current E. coli UTI with some resistance largely to Cipro/ Levaquin. Per sensitivities the cephalosporins are adequate - Supportive measures with ice, scrotal elevation, NSAIDs - Urology followed - no indication for surgical intervention at this time and will F/U in [place] with established Urologist that he has been in contact with CAD: - ASA 81 mg daily and Brilinta 90 mg BID; Atorvastatin 80 mg daily Code Status: FULL RESUSCITATION Disposition: Resident of [place] - plans to return home with Urology F/U Total Time Spent: Greater than 30 minutes This includes examination of the patient, discharge planning, medication reconciliation, and communication with other providers. Discharge Instructions Please refer to the electronic Patient Visit Report (Discharge Instructions) for additional information. Additional Copies To Palak Carey MD
== END 2018-03-11 12:20 | disposition home or self-care (01) | DRG 728 ==
LOC: C.EDB 12:36 → C.MSW 18:21 → ENRESERV 18:27
PROVIDERS: ADMIT Internal Medicine; ATTEND Internal Medicine
DX: N45.3 Epididymo-orchitis (principal); N39.0 Urinary tract infection, site not specified; I25.10 Atherosclerotic heart disease of native coronary artery without angina pectoris; B96.20 Unspecified Escherichia coli [E. coli] as the cause of diseases classified elsewhere; Z79.82 Long term (current) use of aspirin; Z79.899 Other long term (current) drug therapy